=== PATIENT | male | born 1980 | race African-American/Black ===

== ENCOUNTER → 2022-11-21 14:32 | Outpatient (BNVA) | payer BC, SELFPAY | PROVIDERS: PCP Registered Nurse; Visit Provider Registered Nurse | DX: G47.33 Obstructive sleep apnea (adult) (pediatric) (principal); I10 Essential (primary) hypertension | CPT/HCPCS: 80053; 80061; 83036; 84443; 85025 ==

== ENCOUNTER 2022-12-09 20:35 | Emergency (ER) | payer BC, MEDICAID, SELFPAY ==
--- NOTE | 2022-12-09 20:41 | XRR_ITS ---
PROCEDURE INFORMATION: Exam: XR Chest Exam date and time: 12/09/2022 8:50 PM Age: 42 years old Clinical indication: Shortness of breath and other: High blood pressure; Additional info: Cp TECHNIQUE: Imaging protocol: Radiologic exam of the chest. Views: 1 view. COMPARISON: No relevant prior studies available. FINDINGS: Lungs: Unremarkable. No consolidation. Pleural spaces: Unremarkable. No pleural effusion. No pneumothorax. Heart/Mediastinum: Unremarkable. No cardiomegaly. Bones/joints: Unremarkable. XR/XR chest 1V portable [id number] IMPRESSION: No acute findings.
[2022-12-09 20:43] VITALS: BP 181/121; PULSE 81; RESP 16; TEMP 36.6; O2SAT 96; BMI 44.4
--- NOTE | 2022-12-09 20:49 | ECG_ITS ---
[facility] Test Date: 2022-12-09 Pat Name: James Gavin Jr Department: Room: Gender: Male Driver'S Education Instructor: : 1980 Requested By: Dago Bowling Order Number: [id number] Cortez MD: Con Monaco M.D. Measurements Intervals [place] Rate: 79 P: 10 WI: 171 QRS: 10 QRSD: 97 T: -26 QT: 343 QTc: 395 Interpretive Statements SINUS RHYTHM POSSIBLE LEFT ATRIAL ENLARGEMENT [-0.1mV P-WAVE IN V1/V2] No previous ECG available for comparison Electronically Signed On 12-10-2022 10:29:24 CDT by Con Monaco M.D. [email or web address] memorial hospitalAsian Food Centerselect [facility] - [id number] f
--- NOTE | 2022-12-09 20:58 | W.ED.CHESTPA ---
Documented by User: Simon Arnett DO 12/09/22 22:48 HPI - Chest Pain General: Chief Complaint: Chest Pain Stated Complaint: high bp, chest pain Time Seen by Provider: 12/09/22 20:56 History of Present Illness: Patient presents to the ER with complaints of blood pressure. When his blood pressure gets high he also has intermittent chest pain shortness of breath. Patient is currently on lisinopril and metoprolol. Patient's dose just recently increased 3 days ago. MD complaint: chest pain (Remittent and high blood pressure with intermittent shortness of breath) Pertinent past history: coronary artery disease and prior NV Onset (ago): day(s) Timing of current episode: episodic Prior episodes: Yes Onset: during rest Pain location: left chest Pain radiation: none Severity: mild Quality: tightness and aching Relieving factors: nothing Exacerbating factors: nothing Context: new medications Associated symptoms: Reports dyspnea; Deny abdominal pain, fever(s), nausea, palpitations or vomiting Treatment prior to arrival: none Review of Systems General: Reports: 10 or more systems reviewed and unremarkable except in HPI and below Const: Denies: fever(s) or chills Eyes: Denies: change in vision ENMT: Denies: throat pain or odynophagia Card: Reports: chest pain; Denies: palpitations or irregular heart rhythm Resp: Reports: dyspnea; Denies: productive cough or non-productive cough GI: Denies: abdominal pain, nausea, vomiting or diarrhea : Denies: flank pain Musc: Denies: neck pain or back pain Neuro: Denies: headache(s), numbness in extremities or weakness in extremities Psych: Denies: anxiety or depression PFSH ED PFSH: Family History Father Diabetes CAD (coronary artery disease) Hypertension Denies family history of Chronic kidney disease (CKD) Lung disease Cancer Stroke Social History Smoking and tobacco status: never smoked Alcohol intake: never Adopted: No Caregiver/support person: No Lives independently: Yes Household members: significant other service: No Current occupational status: unemployed Sexually active: Yes Current gender identity: Male Physical Exam Const: COMMON NORMALS: no acute distress, average body habitus, patient oriented x3, no limitations, healthy appearing, alert and well nourished HENMT: COMMON NORMALS: normocephalic, atraumatic, hearing grossly normal bilaterally, external ears normal, Normal external nose present and moist oral mucous membranes HEAD & SCALP: normocephalic and atraumatic NOSE: Normal external nose present EXTERNAL EAR: Yes external ears normal Eye: COMMON NORMALS: Equal, round and reactive pupils present, EOMs intact bilaterally, conjunctivae normal and no scleral icterus CONJUNCTIVA: Yes conjunctivae normal PUPIL: Yes Equal, round and reactive pupils present Neck/C-Spine: COMMON NORMALS: full ROM, no lymphadenopathy, supple, no meningeal signs, no JVD and Thyroid normal THYROID: Thyroid normal Chest: OTHER: Tenderness to palpation over left chest that which reproduces the pain. Resp: COMMON NORMALS: normal respiratory effort, No retractions, No use of accessory muscles and clear to auscultation bilaterally AUSCULTATION: clear to auscultation bilaterally Cardio: COMMON NORMALS: no JVD, regular rate, regular rhythm, S1 normal heart sound present and S2 normal heart sound present RATE: regular rate RHYTHM: regular rhythm HEART SOUNDS: S1 normal heart sound present and S2 normal heart sound present GI: COMMON NORMALS: Normal to inspection, nondistended, normoactive bowel sounds present, Soft to palpation, non-tender, No hepatosplenomegaly present and no masses PALPATION: Yes Soft to palpation and Yes No hepatosplenomegaly present Neuro: COMMON NORMALS: patient oriented x3 SENSORIUM/ORIENTATION: Yes alert MENINGEAL SIGNS: Yes no meningeal signs Psych: COMMON NORMALS: mental status grossly normal, cooperative, normal affect and speech normal SPEECH: Yes normal speech Course Vital Signs: Vital signs: Vital Signs Temperature 97.9 F 12/09/22 20:43 Pulse Rate 78 12/10/22 00:04 Respiratory Rate 23 H 12/10/22 00:04 Blood Pressure 140/93 12/10/22 00:04 Pulse Oximetry 98 12/10/22 00:04 Oxygen Delivery Me thod Room Air 12/10/22 00:04 MDM - Chest Pain Differential Diagnosis Unlikely acute massive pulmonary embolism, acute respiratory failure, acute myocardial infarction, cardiac arrest or sudden cardiac Lab Data 12/09/22 21:19 12/09/22 21:19 Radiology Impressions Chest X-Ray 12/09/22 20:41 IMPRESSION: No acute findings. Laboratory Results WBC 14.0 10^3/uL (4.0-10.0) H 12/09/22 21:19 RBC 5.23 10^6/uL (4.1-5.3) 12/09/22 21:19 Hgb 16.2 g/dL (11.7-16.6) 12/09/22 21:19 Hct 48.2 % (42.0-52.0) 12/09/22 21: MCV 92.2 fl (80-94) 12/09/22 21:19 MCH 31.0 pg (28.0-34.0) 12/09/22 21: MCHC 33.6 g/dL (30.0-36.0) 12/09/22 21: RDW 12.9 % (12.1-15.1) 12/09/22 21:19 Plt Count 238 10^3/cmm (130-400) 12/09/22 21:19 MPV 10.4 fL (7.4-10.4) 12/09/22 21:19 Neut % (Auto) 52.3 % 12/09/22 21:19 Lymph % (Auto) 36.3 % 12/09/22 21:19 [place] % (Auto) 7.2 % 12/09/22 21:19 Eos % (Auto) 3.0 % 12/09/22 21:19 Baso % (Auto) 0.8 % 12/09/22 21:19 Neut # (Auto) 7.33 10^3/uL (1.8-7.7) 12/09/22 21:19 Lymph # (Auto) 5.1 10^3/uL (0.8-4.8) H 12/09/22 21:19 [place] # (Auto) 1.0 10^3/uL (0.2-0.9) H 12/09/22 21:19 Eos # (Auto) 0.4 10^3/uL (0.0-0.8) 12/09/22 21:19 Baso # (Auto) 0.1 10^3/uL (0.0-0.1) 12/09/22 21:19 Nucleated RBC % (auto) 0 % 12/09/22 21:19 Nucleated RBCs # 0.0 /100WBC 12/09/22 21:19 Sodium 137 mmol/L (136-145) 12/09/22 21:19 Potassium 3.9 mmol/L (3.5-5.1) 12/09/22 21:19 Chloride 103 mmol/L (98-107) 12/09/22 21:19 Carbon Dioxide 23 mmol/L (22-29) 12/09/22 21:19 Anion Gap 14.9 (5-19) 12/09/22 21:19 BUN 15 mg/dL (6-20) 12/09/22 21:19 Creatinine 1.1 mg/dL (0.7-1.2) 12/09/22 21:19 GFR Calculation 89.7 mL/min (90-130) L 12/09/22 21:19 Glucose 136 mg/dL (65-115) H 12/09/22 21:19 Calculated Osmolality 287 mOsm/kg (285-295) 12/09/22 21:19 Calcium 8.8 mg/dL (8.5-10.5) 12/09/22 21:19 Total Bilirubin 0.2 mg/dL (0.15-1.2) 12/09/22 21:19 AST 23 U/L (0-40) 12/09/22 21:19 ALT 23 U/L (0-41) 12/09/22 21:19 Alkaline Phosphatase 86 U/L (40-130) 12/09/22 21:19 Troponin T Baseline 9 ng/L (0-15) 12/09/22 21:19 Troponin T 120 Minute 9.82 ng/L (0-15) 12/09/22 23:04 Delta Troponin T 0.82 ABS# (0-10) 12/09/22 23:04 Troponin T Hi Sens 6Hr 10.35 ng/L (0-15) 12/10/22 00:04 Troponin T Hi Sens 6Hr Delta 1.35 ng/L (0-12) 12/10/22 00:04 Total Protein 7.0 g/dL (6.6-8.7) 12/09/22 21:19 Albumin 4.3 g/dL (3.5-5.2) 12/09/22 21:19 Globulin 2.7 g/dL (1.3-4.6) 12/09/22 21:19 EKG Data EKG 1: I personally reviewed and interpreted this EKG as follows: EKG interpretation date: 12/09/22 EKG interpretation time: 20:49 Prior EKG tracings: not available for review Interpretation: EKG showed normal sinus rhythm at 79 bpm. #171, QRS duration 97, QTc 378, no ST-T wave changes EKG 2: I personally reviewed and interpreted this EKG as follows: EKG interpretation date: 12/09/22 EKG interpretation time: 22:46 Prior EKG tracings: available for review Interpretation: EKG showed normal sinus rhythm at 77 bpm, MO interval 203, QRS duration 94, QTc 384, Discharge Plan Discharge Patient Disposition: Home Clinical Impression: Chest pain, Hypertension Condition: Stable Prescriptions: No Action pantoprazole 20 mg tablet,delayed release (DR/EC) 20 mg PO DAILY 30 Days Qty: 30 0RF Rx Instructions: take on empty stomach lisinopril 30 mg tablet 30 mg PO DAILY 90 Days Qty: 90 0RF metoprolol succinate 50 mg tablet extended release 24 hr 50 mg PO DAILY 90 Days Qty: 90 0RF Discharge Orders: Discharge ED (Routine); Ordered 12/09/22 Ordered By: Harrison Suárez Referrals: Marilia Gallagher FNP [Primary Care Provider] - 1-3 days Patient Instructions: Opioid Safety, Pain Management Activity Restrictions/Additional Instructions: Return for return of or worsening chest pain, shortness of breath, other concerning symptoms. Check your blood pressure twice daily. Report numbers to your doctor early next week. Medication changes may need to be made if your blood pressure is staying up. For now, if blood pressure is remaining greater than 150/90, you could begin to take lisinopril twice daily instead of once until you see your doctor. Coding Level of Care Code ED Elevator Constructor Hydraulic for Chg Fwd Documented by User: Harrison Suráez DO 12/10/22 03:44 HPI - Chest Pain General: Chief Complaint: Chest Pain Stated Complaint: high bp, chest pain Time Seen by Provider: 12/09/22 20:56 [facility] PFSH: Family History Father Diabetes CAD (coronary artery disease) Hypertension Denies family history of Chronic kidney disease (CKD) Lung disease Cancer Stroke Social History Smoking and tobacco status: never smoked Alcohol intake: never Adopted: No Caregiver/support person: No Lives independently: Yes Household members: significant other service: No Current occupational status: unemployed Sexually active: Yes Current gender identity: Male Course Vital Signs: Vital signs: Vital Signs Temperature 97.9 F 12/09/22 20:43 Pulse Rate 78 12/10/22 00:04 Respiratory Rate 23 H 12/10/22 00:04 Blood Pressure 140/93 12/10/22 00:04 Pulse Oximetry 98 12/10/22 00:04 Oxygen Delivery Me thod Room Air 12/10/22 00:04 MDM - Chest Pain Medical Decision Making Received in checkout from Dr. Arnett at shift change. This gentleman had chest discomfort. None currently. No history of coronary disease. Blood pressure was significantly elevated on arrival. Currently 140/93 after clonidine in the ER. His EKG is nonacute with no acute ST wave changes. White blood cell count is 14. Other laboratory is normal. Chest x-ray is negative. Troponin did not change at 2 hours. With improvement in his blood pressure, no pain currently, he will be allowed discharge. Outpatient follow-up. Lab Data 12/09/22 21:19 12/09/22 21:19 Radiology Impressions Chest X-Ray 12/09/22 20:41 IMPRESSION: No acute findings. Laboratory Results WBC 14.0 10^3/uL (4.0-10.0) H 12/09/22 21:19 RBC 5.23 10^6/uL (4.1-5.3) 12/09/22 21:19 Hgb 16.2 g/dL (11.7-16.6) 12/09/22 21:19 Hct 48.2 % (42.0-52.0) 12/09/22 21:19 MCV 92.2 fl (80-94) 12/09/22 21:19 MCH 31.0 pg (28.0-34.0) 12/09/22 21: MCHC 33.6 g/dL (30.0-36.0) 12/09/22 21:19 RDW 12.9 % (12.1-15.1) 12/09/22 21:19 Plt Count 238 10^3/cmm (130-400) 12/09/22 21:19 MPV 10.4 fL (7.4-10.4) 12/09/22 21:19 Neut % (Auto) 52.3 % 12/09/22 21: Lymph % (Auto) 36.3 % 12/09/22 21:19 [place] % (Auto) 7.2 % 12/09/22 21: Eos % (Auto) 3.0 % 12/09/22 21:19 Baso % (Auto) 0.8 % 12/09/22 21:19 Neut # (Auto) 7.33 10^3/uL (1.8-7.7) 12/09/22 21:19 Lymph # (Auto) 5.1 10^3/uL (0.8-4.8) H 12/09/22 21:19 [place] # (Auto) 1.0 10^3/uL (0.2-0.9) H 12/09/22 21:19 Eos # (Auto) 0.4 10^3/uL (0.0-0.8) 12/09/22 21:19 Baso # (Auto) 0.1 10^3/uL (0.0-0.1) 12/09/22 21:19 Nucleated RBC % (auto) 0 % 12/09/22 21: Nucleated RBCs # 0.0 /100WBC 12/09/22 21:19 Sodium 137 mmol/L (136-145) 12/09/22 21:19 Potassium 3.9 mmol/L (3.5-5.1) 12/09/22 21: Chloride 103 mmol/L (98-107) 12/09/22 21:19 Carbon Dioxide 23 mmol/L (22-29) 12/09/22 21:19 Anion Gap 14.9 (5-19) 12/09/22 21:19 BUN 15 mg/dL (6-20) 12/09/22 21:19 Creatinine 1.1 mg/dL (0.7-1.2) 12/09/22 21:19 GFR Calculation 89.7 mL/min (90-130) L 12/09/22 21:19 Glucose 136 mg/dL (65-115) H 12/09/22 21:19 Calculated Osmolality 287 mOsm/kg (285-295) 12/09/22 21:19 Calcium 8.8 mg/dL (8.5-10.5) 12/09/22 21:19 Total Bilirubin 0.2 mg/dL (0.15-1.2) 12/09/22 21:19 AST 23 U/L (0-40) 12/09/22 21:19 ALT 23 U/L (0-41) 12/09/22 21:19 Alkaline Phosphatase 86 U/L (40-130) 12/09/22 21:19 Troponin T Baseline 9 ng/L (0-15) 12/09/22 21:19 Troponin T 120 Minute 9.82 ng/L (0-15) 12/09/22 23:04 Delta Troponin T 0.82 ABS# (0-10) 12/09/22 23:04 Troponin T Hi Sens 6Hr 10.35 ng/L (0-15) 12/10/22 00:04 Troponin T Hi Sens 6Hr Delta 1.35 ng/L (0-12) 12/10/22 00:04 Total Protein 7.0 g/dL (6.6-8.7) 12/09/22 21:19 Albumin 4.3 g/dL (3.5-5.2) 12/09/22 21:19 Globulin 2.7 g/dL (1.3-4.6) 12/09/22 21:19 Discharge Plan Discharge Patient Disposition: Home Clinical Impression: Chest pain, Hypertension Condition: Stable Prescriptions: No Action pantoprazole 20 mg tablet,delayed release (DR/EC) 20 mg PO DAILY 30 Days Qty: 30 0RF Rx Instructions: take on empty stomach lisinopril 30 mg tablet 30 mg PO DAILY 90 Days Qty: 90 0RF metoprolol succinate 50 mg tablet extended release 24 hr 50 mg PO DAILY 90 Days Qty: 90 0RF Discharge Orders: Discharge ED (Routine); Ordered 12/09/22 Ordered By: Harrison Suárez Referrals: Marilia Gallagher FNP [Primary Care Provider] - 1-3 days Patient Instructions: Opioid Safety, Pain Management Activity Restrictions/Additional Instructions: Return for return of or worsening chest pain, shortness of breath, other concerning symptoms. Check your blood pressure twice daily. Report numbers to your doctor early next week. Medication changes may need to be made if your blood pressure is staying up. For now, if blood pressure is remaining greater than 150/90, you could begin to take lisinopril twice daily instead of once until you see your doctor. Coding Level of Care Code ED Elevator Constructor Hydraulic for Jorge Garcia
[2022-12-09 21:25] LABS: Basophils # 0.1 10^3/uL (0.0-0.1); Basophils % 0.8 %; Eosinophils # 0.4 10^3/uL (0.0-0.8); Hematocrit 48.2 % (42.0-52.0); Hemoglobin 16.2 g/dL (11.7-16.6); Lymphocytes # 5.1 10^3/uL (0.8-4.8); Lymphocytes % 36.3 %; Mean Corpuscular HGB Conc 33.6 g/dL (30.0-36.0); Mean Corpuscular Volume 92.2 fl (80-94); Mean Platelet Volume 10.4 fL (7.4-10.4); Monocytes % 7.2 %; Neutrophils # 7.33 10^3/uL (1.8-7.7); Neutrophils % 52.3 %; Nucleated Red Blood Cells % 0 %; Platelet Count 238 10^3/cmm (130-400); Red Blood Count 5.23 10^6/uL (4.1-5.3); Red Cell Distribution Width 12.9 % (12.1-15.1)
[2022-12-09 21:42] LABS: Alanine Aminotransferase 23 U/L (0-41); Albumin Level 4.3 g/dL (3.5-5.2); Alkaline Phosphatase 86 U/L (40-130); Anion Gap 14.9 (5-19); Aspartate Amino Transferase 23 U/L (0-40); Blood Urea Nitrogen 15 mg/dL (6-20); Calcium 8.8 mg/dL (8.5-10.5); Carbon Dioxide 23 mmol/L (22-29); Chloride 103 mmol/L (98-107); Globulin 2.7 g/dL (1.3-4.6); Glomerular Filtration Rate 89.7 mL/min (90-130); Glucose 136 mg/dL (65-115); Osmolality Calculated 287 mOsm/kg (285-295); Potassium 3.9 mmol/L (3.5-5.1); Sodium 137 mmol/L (136-145); Total Bilirubin 0.2 mg/dL (0.15-1.2); Troponin(5th) Baseline 9 ng/L (0-15)
--- NOTE | 2022-12-09 22:44 | ECG_ITS ---
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 Measurements Intervals [place] Rate: 77 P: 35 NV: 203 QRS: 37 QRSD: 94 T: -31 QT: 353 QTc: 400 Interpretive Statements SINUS RHYTHM NONSPECIFIC T-WAVE ABNORMALITY Compared to ECG 12/09/2022 20:49:31 T-wave abnormality now present Electronically Signed On 12-10-2022 10:32:28 CDT by Con Monaco M.D. [id number]
[2022-12-09 23:24] VITALS: BP 170/99
[2022-12-09] MEDS: cloNIDine 0.1 mg Tablet PO (23:24)
[2022-12-09 23:44] LABS: Troponin 5 2HR 9.82 ng/L (0-15)
[2022-12-09 23:51] LABS: Troponin 5 2HR Delta 0.82 ABS# (0-10)
[2022-12-10 00:04] VITALS: BP 140/93; PULSE 78; RESP 23; O2SAT 98
[2022-12-10 00:33] LABS: Troponin 5 6HR 10.35 ng/L (0-15)
[2022-12-10 00:42] LABS: Troponin 5 6HR Delta 1.35 ng/L (0-12)
== END 2022-12-10 00:05 | disposition home or self-care (01) ==
PROVIDERS: Physician Assistant; Emergency Provider Emergency Medicine; PCP Registered Nurse
DX: R07.9 Chest pain, unspecified (principal); I10 Essential (primary) hypertension
CPT/HCPCS: 36415; 71045; 80053; 84484; 85025; 93005; 99285

== ENCOUNTER 2022-12-15 11:57 | Outpatient (CLI) | payer BC, MEDICAID, SELFPAY ==
--- NOTE | 2022-12-15 | ECG_ITS ---
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 Interpretive Statements NAME OF STUDY: TREADMILL STRESS TEST INDICATION: [Uncontrolled HTN, Chest Pain] EXERCISE DATA: The patient was exercised by José Manuel protocol. Baseline heart rate was 78 beats per minute. Baseline blood pressure was 164/103 millimeters of mercury. Target heart rate was 153 beats per minute. Maximum heart rate achieved was 139 which was 90% of the target heart rate and was suboptimal. Maximum blood pressure was 201/115 millimeters of mercury. Total exercise time was 9 minutes. Maximum METs achieved was 10.2. The reason for ending the test was maximal effort achieved along with shortness of breath. The patient complained of shortness of breath and leg pain during the stress test, which then resolved at the end of the test. ELECTROCARDIOGRAM: BASELINE: Showed sinus rhythm, normal axis, no significant ST-T changes at the baseline noted. [] EXERCISE: At the peak exercise level, significant artifact was noted. ST-T wave changes cannot be assessed because of underlying artifact. RECOVERY: During the recovery period, heart rate dropped appropriately. No significant ST-T changes in the recovery suggestive of ischemia noted. [] CONCLUSION: 1. Exercise capacity fair 2. Heart rate response was suboptimal 3. Blood pressure response was appropriate. 4. Stress test is suboptimal as patient could not reach target heart rate secondary to shortness of breath and leg pain. Also had significant artifact EKG and exercise. Cannot assess ischemia based on inadequate heart rate, EKG artifact. Consider alternate study to rule out ischemia Electronically Signed On 12-25-2022 15:14:18 CDT by Con Monaco M.D. [id number]
[2022-12-15 12:12] VITALS: BMI 45.3
[2022-12-15 12:59] VITALS: BP 136/89; PULSE 89
== END 2022-12-15 11:58 | disposition home or self-care (01) ==
PROVIDERS: PCP Registered Nurse; Visit Provider Registered Nurse
DX: R06.02 Shortness of breath (principal); I10 Essential (primary) hypertension; Z82.49 Family history of ischemic heart disease and other diseases of the circulatory system
CPT/HCPCS: 93017

== ENCOUNTER 2023-01-13 12:26 | Outpatient (CLI) | payer MEDICAID, SELFPAY ==
--- NOTE | 2023-01-13 12:45 | USCV_ITS ---
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 Technologist: Layla Moeller [place] [facility] [place]: HTN BP: 136 / 93 HR: 71 Rhythm: Sinus Technical Quality: Adequate MEASUREMENTS (Male / Female) Normal Values 2D ECHO LV Diastolic Diameter PLAX 3.1 cm 4.2 - 5.9 / 3.9 - 5.3 cm LV Systolic Diameter PLAX 2.2 cm LV Chamber Size 3.1 cm IVS Diastolic Thickness 1.0 cm 0.6 - 1.0 / 0.6 - 0.9 cm IVS Systolic Thickness 2.0 cm LVPW Diastolic Thickness 1.5 cm 0.6 - 1.0 / 0.6 - 0.9 cm LVPW Systolic Thickness 2.2 cm RV Chamber Size 2.6 cm LVOT Diameter 2.0 cm LV Ejection Fraction 2D Teich 55.1 % LV Ejection Fraction MOD 2C 60.0 % LV Ejection Fraction 2C AL 63.1 % LA Diameter 3.3 cm LA Width 3.4 cm LA Height 3.6 cm RA Width 3.8 cm RA Height 4.0 cm Aorta at Sinotubular Diameter 3.5 cm IVC Diameter 1.2 cm M-MODE Aortic Annulus Diameter 4.0 cm LA Ao Ratio MM 0.9 MV E Point Septal Separation 0.7 cm DOPPLER AV Peak Velocity 131.0 cm/s LVOT Peak Velocity 105.0 cm/s AV Area Cont Eq vti 2.2 cm squared AV Area Cont Eq pk 2.6 cm squared MV Peak Velocity 96.0 cm/s MV Area PHT 3.0 cm squared Mitral E to A Ratio 1.2 MV E' Velocity 42.0 cm/s Mitral E to MV E' Ratio 6.3 Mitral E to LV E' Lateral Ratio 5.9 Mitral E to LV E' Septal Ratio 6.8 TR Peak Velocity 202.5 cm/s TR Peak Gradient 16.4 mmHg TR Mean Velocity 141.1 cm/s TR Mean Gradient 9.4 mmHg TR Velocity Time Integral 51.2 cm TV Peak E Velocity 70.0 cm/s Right Atrial Pressure 3.0 mmHg Pulmonary Artery Systolic Pressu 19.4 mmHg RV Acceleration Time 0.1 s RV Ejection Time 0.3 s RV AcT/ET 0.5 FINDINGS Left Ventricle Left ventricle is normal in size. LV systolic function is normal with EF of 60 to 65%. No regional wall motion abnormalities are seen. Diastolic function is normal. Right Ventricle Normal in size and function Right Atrium Normal in size Left Atrium Normal in size Mitral Valve Structurally normal mitral valve. Trace mitral regurgitation. Aortic Valve Structurally normal aortic valve. No significant stenosis or regurgitation. Tricuspid Valve Mild tricuspid regurgitation. RVSP is normal. Pulmonic Valve Not well-visualized. Pericardium Normal Aorta Normal in size IVC Appears to be normal CONCLUSIONS LV systolic function is normal with EF 60-65% Diastolic function is normal Trace mitral regurgitation Mild tricuspid regurgitation No comparison studies are available. Con Monaco MD (Electronically Signed) Final Date: 13 Jan 2023 17:16 S
== END 2023-01-13 12:27 | disposition home or self-care (01) ==
LOC: RAD 12:31
PROVIDERS: PCP Registered Nurse; Visit Provider Registered Nurse
DX: I10 Essential (primary) hypertension (principal); R06.02 Shortness of breath; I07.1 Rheumatic tricuspid insufficiency
CPT/HCPCS: 93306

== ENCOUNTER → 2023-01-27 09:55 | Outpatient (BNVA) | payer MEDICAID, SELFPAY | PROVIDERS: PCP Registered Nurse; Visit Provider Registered Nurse | DX: N28.9 Disorder of kidney and ureter, unspecified (principal) | CPT/HCPCS: 81000 ==

== ENCOUNTER 2023-03-23 20:00 | Outpatient (CLI) | payer MEDICAID, SELFPAY | END 2023-03-23 20:01 | disposition home or self-care (01) | LOC: SLEEP 03-24 05:17 | PROVIDERS: PCP Registered Nurse; Visit Provider Registered Nurse | DX: G47.33 Obstructive sleep apnea (adult) (pediatric) (principal); E66.01 Morbid (severe) obesity due to excess calories; Z68.42 Body mass index [BMI] 45.0-49.9, adult; I10 Essential (primary) hypertension | CPT/HCPCS: 95810 ==

== ENCOUNTER → 2023-04-24 14:58 | Outpatient (BNVA) | payer MEDICAID, SELFPAY | PROVIDERS: PCP Registered Nurse; Visit Provider Registered Nurse | DX: R35.0 Frequency of micturition (principal) | CPT/HCPCS: 81000 ==

== ENCOUNTER → 2023-05-11 09:54 | Outpatient (BNVA) | payer MEDICAID, SELFPAY | PROVIDERS: PCP Registered Nurse; Visit Provider Registered Nurse | DX: Z20.822 Contact with and (suspected) exposure to COVID-19 (principal) | CPT/HCPCS: 87426 ==

== ENCOUNTER 2023-06-28 20:00 | Outpatient (CLI) | payer MEDICAID, SELFPAY | END 2023-06-28 20:01 | disposition home or self-care (01) | LOC: SLEEP 06-29 06:22 | PROVIDERS: PCP Registered Nurse; Visit Provider Registered Nurse | DX: G47.33 Obstructive sleep apnea (adult) (pediatric) (principal) | CPT/HCPCS: 95811 ==

== ENCOUNTER 2023-09-29 08:21 | Outpatient (CLI) | payer MEDICAID, SELFPAY ==
--- NOTE | 2023-09-29 08:45 | MR_ITS ---
WS: [id number] MRI RIGHT KNEE NONCONTRAST TECHNIQUE: Axial PD, coronal PD fat sat, coronal PD, sagittal PD, and sagittal PD fat-sat images obta ined. CLINICAL INFORMATION: M25.561 - Pain in right knee COMPARISON: None. FINDINGS: Distal quadriceps and patella tendons are intact. Hypertrophic patella. Distal quadriceps insertion e nthesophyte. Patella tendon origin enthesophyte. ACL and PCL appear intact. Thinning of the ACL with a small amount of fluid and edema in the mid and distal aspect suspicious for recent injury. No evide nce of bone marrow contusion. Chronic thinning of the medial lateral meniscus somewhat advanced for a patient this age in the medial joint compartment. No acute appearing meniscal tears. Moderate chondromalacia patella. Medial and lateral collateral ligaments appear intact. Tiny amount o f fluid and edema along the MCL. Recommend correlation for MCL sprain. Tiny suprapatellar effusion. S mall amount of fluid and edema involving the medial patellar retinaculum suspicious for partial tear. Normal popliteus. Normal popliteal fossa. IMPRESSION: 1. ACL and PCL appear intact. Thinning of the distal ACL with a small amount of edema. Recommend cor relation for partial ACL tear or ACL injury. 2. 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 3. Chronic thinning of the medial and lateral meniscus. No acute appearing meniscal tears. 4. Suspected partial tear involving the medial patellar retinaculum. Recommend correlation for peter lar instability. 5. Suspected grade 1 MCL injury. 6. Moderate chondromalacia patella. Small suprapatellar effusion. 7. Distal quadriceps and proximal patella tendon enthesophytes. 8. Small amount of prepatellar and infrapatellar soft tissue edema about the knee. Outbridge grading: grade III: partial-thickness cartilage loss with focal ulceration
== END 2023-09-29 08:22 | disposition home or self-care (01) ==
LOC: RAD 08:21
PROVIDERS: PCP Registered Nurse; Visit Provider Registered Nurse
DX: M23.8X1 Other internal derangements of right knee (principal); M22.41 Chondromalacia patellae, right knee; M76.51 Patellar tendinitis, right knee; M25.461 Effusion, right knee
CPT/HCPCS: 73721

== ENCOUNTER → 2024-09-09 10:51 | Outpatient (BNVA) | payer MEDICAID, SELFPAY | PROVIDERS: PCP Registered Nurse; Visit Provider Registered Nurse | DX: I10 Essential (primary) hypertension (principal) | CPT/HCPCS: 80053; 80061; 83036; 85025 ==

== ENCOUNTER → 2024-09-12 08:53 | Outpatient (BNVA) | payer MEDICAID, SELFPAY | PROVIDERS: PCP Registered Nurse; Visit Provider Registered Nurse | DX: L98.9 Disorder of the skin and subcutaneous tissue, unspecified (principal) | CPT/HCPCS: 88305 ==

== ENCOUNTER → 2024-12-16 11:13 | Outpatient (BNVA) | payer BC, SELFPAY | PROVIDERS: PCP Registered Nurse; Visit Provider Registered Nurse | DX: E11.9 Type 2 diabetes mellitus without complications (principal); I10 Essential (primary) hypertension | CPT/HCPCS: 80048; 83036 ==

== ENCOUNTER → 2024-12-23 13:31 | Outpatient (BNVA) | payer OTHER, SELFPAY | PROVIDERS: PCP Registered Nurse; Visit Provider Student in an Organized Health Care Education/Training Program | DX: S82.831A Other fracture of upper and lower end of right fibula, initial encounter for closed fracture (principal); W19.XXXA Unspecified fall, initial encounter | CPT/HCPCS: 73610 ==

== ENCOUNTER 2024-12-26 10:13 | Day surgery (SDC) | payer OTHER, SELFPAY ==
[2024-12-26] VITALS (8 sets, daily range): BP systolic 115–141; BP diastolic 55–99; PULSE 65–78; RESP 16–18; TEMP 36.1–36.3; O2SAT 94–97; BMI 42.7
--- NOTE | 2024-12-26 10:49 | SUR.PREOP ---
Patient has never had surgery before and became very anxious upon setting up for IV. Cool cloth was placed on back of neck and fan brought to room to blow cool air on him. Patient is teary eyed and family is at bedside.
[2024-12-26] MEDS: MIDAZOLAM HCL 10 MG/5 ML UDC 20 MG PO (11:03)
[2024-12-26] MEDS: acetaminophen 1,000 MG/100 ML PIGGYBACK 400 MG IV (11:11)
[2024-12-26] MEDS: sodium chloride 0.9% 1,000 ML 30 ML (11:11)
[2024-12-26] MEDS: ketorolac 30 mg/mL INJ IVP (11:13)
--- NOTE | 2024-12-26 11:36 | W.PM.OPSUD ---
Surgery/Procedure H&P Update DATE OF PROCEDURE: December 26, 2024 DATE H&P PERFORMED: 12/23/24 H&P UPDATE INFORMATION: I have reviewed H&P completed within last 30 days, I have examined patient prior to procedure and No changes to prior documentation CHANGES TO PREVIOUS DOCUMENTATION: Patient splint was taken down soft tissue inspected patient had a positive wrinkle sign with amendable soft tissue envelope to proceed with surgical intervention. Patient had significant anxiety and did receive some premedication of Versed prior to his full consent signing as a result consent was obtained with his life partner with witness as well. Once again she understands for him which we talked about in the office about the ins and outs procedure risk benefits complication alternatives of surgery and through shared decision making like to proceed with surgical intervention all questions answered at this time. PREOP DIAGNOSIS: Displaced right distal fibula fracture PRIMARY INDICATION FOR PROCEDURE: Displaced right distal fibula fracture with medial clear space widening with stress test PLANNED PROCEDURE: Operation Date: 12/26/24 12:25 Proposed Procedures p distal fibula open reduction internal fixation(Right) - Michael Bowling DO
[2024-12-26] MEDS: ceFAZolin 2,000 MG in sodium chloride 0.9% (plus) 50 ML 100 MG IV (11:44)
[2024-12-26] MEDS: ceFAZolin 1,000 mg SDV 1000 MG IVP (12:12)
[2024-12-26] MEDS: ROPivacaine 0.5% SDV 30 mL 50 MG INJECTION (12:31)
[2024-12-26] MEDS: lidocaine 1% 10 ML INJ INJECTION (12:31)
--- NOTE | 2024-12-26 13:33 | P.OP_ITS ---
Operative Report Date of procedure: December 26, 2024 Surgeon: Michael Bowling DO
--- NOTE | 2024-12-26 13:33 | P.OP_ITS ---
Operative Report Date of procedure: December 26, 2024 Surgeon: Michael Bowling DO Stamping Die Maker Bench: Dago Bowling PA-C: PA was necessary for assistance in this case with leg positioning retraction and protection of neurovascular structures as well as assistance in implantation/fracture reduction and fixation, wound closure and dressing application and splint application. Procedure: Preoperative diagnosis: Right distal fibula fracture with medial clear space widening post-op diagnosis: Same, with stable syndesmosis after fracture fixation Procedure done: Right?distal fibula open reduction internal fixation Right?ankle?short leg standard AO splint application Implants: Arthrex anatomic distal fibula plate combination of locking and nonlocking screws and interfragmentary screws Surgeon: Michael Bowling DO Estimated blood loss: 10mL Tourniquet time 46 minutes IV fluids: 800mL Urine output: See anesthesia record Complications: None Findings: See operative report narrative Condition: stable Disposition: same day Brief History: Patient is a 44-year-old male who sustained a right distal fibula fracture?ankle?fracture.? This was seen in the emergency department and referred to myself for an orthopedic in outpt setting. On my evaluation patient has inherently unstable right distal fibula?ankle?fracture with medial clear space widening with external stress test under fluoroscopy imaging. We talked about treatment options far as nonoperative and operative intervention.? At this point time given the inherent instability would recommend surgical intervention of?ORIF?right distal fibula fracture with possible syndesmotic fixation.? Understanding risk for surgery as far as risk benefits complications with surgical nonsurgical treatment options patient agrees to proceed with surgical intervention.? All questions been answered at this time.? Soft tissue check prior to surgery demonstrates positive wrinkle sign amenable for surgical intervention.? Consent was obtained patient agrees to proceed with surgery. Procedure: Patient seen evaluated in the preoperative holding area.? Consent was reviewed and signed with patient's as patient was premedicated secondary to his anxiety preoperatively.? Correct extremity was marked.? Splint was taken down soft tissue inspected and positive wrinkle sign demonstrating amendable for proceeding with surgical intervention.? Patient underwent regional anesthesia per the anesthesia department.? Patient was brought back to the operative suite.? Patient was transported on the OR table placed in supine position all bony prominences well-padded patient appropriate secured to the bed.? Patient then underwent anesthesia per the anesthesia department.? Once appropriately anesthetized the right lower extremity was then nonsterile tourniquet applied to the right thigh.? Patient was placed in ipsilateral hip bump was placed for appropriate foot positioning and was placed on bone foam large C arm was used for this procedure.? Patient was then prepped and draped in standard orthopedic fashion.? Final timeout performed.? Patient received appropriate preoperative antibiotics. Large fluoroscopic C-arm was then brought into identify fracture fragments.? At this point in time I then planned for a direct lateral approach to the distal fibula. Started with my lateral incision.? A standard direct lateral approach to the distal fibula was performed with care to protect the SPN nerve I utilized sharp scalpel incision dissection scissors and then elevated with a periosteal elevator on bone to the fracture site and proximal to accommodate for plate fixation.? I then identified the fracture site.? This was found to have fracture pattern amenable to lag screw interfragmentary fixation.? As result I utilized a reduction clamp to maintain my reduction and this was confirmed on fluoroscopic imaging to be in appropriate position as well as appropriate length of the fibula.? While maintaining this reduction I subsequently drilled and placed an interfragmentary lag screw under standard technique which was subsequently drilled measured and placed appropriate length screw which had appropriate fixation.? I then selected a Arthrex anatomic distal fibula plate to the appropriate length this was then held up to the bone and once confirmed to be in appropriate position I then subsequently drilled a 3.5 cortical screw proximally to secure the plate to bone as well as did this distally to secure the plate to bone once I was confirmed that there was good bone to plate interface and the fracture was well maintained I then subsequently locked the plate distally was subsequently drilled measured and placed appropriate length multiple locking screws around my cortical screw once this was completed I remove my distal cortical screw and placed a shorter locking screw all the screws were in appropriate position and did not violate the lateral gutter.? Next I turned my fixation proximally and then subsequently drilled an additional locking screws in the plate to increase my construct rigidity.? Proximal guides were then used and subsequently drilled measured and placed additional locking screws proximally which were placed in standard fashion. I did place an additional cortical screw at my most proximal screw hole. This completed my lateral distal fibula?ORIF?and was satisfied with my reduction and fixation. I then at this point in time stress the syndesmosis with an external stress test as well as cotton test which were all negative and the ankle mortise joint was congruent throughout with no evidence of medial clear space widening as a result the syndesmosis was intact after the distal fibula fixation. No further syndesmotic fixation or surgical intervention required. this completed my fixation.? Final x-rays were taken of AP?ankle?mortise stress as well as lateral images which showed stable right distal fibula?ankle?ORIF. Tourniquet was deflated.? Hemostasis was satisfactory.? Wound beds were then thoroughly irrigated.? The lateral incision was closed with 2-0 Vicryl and chan.? Xeroform covered the incision sites.? 4 x 4's ABDs Curlex soft roll and a standard AO short leg splint was then applied with holding the foot in neutral position.? Patient was then awake from anesthesia and taken to PACU in stable condition. Disposition: Patient taken to PACU in stable condition recovering well.? Pain controlled.? Will receive appropriate discharge instructions as well as pain medication postoperatively.? Maintain splint until follow-up.? Follow-up in the orthopedic office in 2 weeks.? Patient to be nonweightbearing right lower extremity.? Patient understands and agrees with current plan.? All questions answered.? Elevation ice as needed.? Will receive DVT prophylaxis of aspirin.
--- NOTE | 2024-12-26 13:33 | W.PM.BPON ---
Date of Procedure:12/26/24 Surgeon: Michael Bowling DO Field Research Assistant(s): Dago Bowling PA-C Procedure(s) performed: Right distal fibula open reduction internal fixation Findings of the procedure(s): Patient found to have a right displaced distal fibula fracture underwent ORIF as planned without issues or complications. Patient then underwent external stress testing and cotton test and was negative for no medial clear space widening as a result no syndesmotic fixation was necessary. Patient was alert and closed up and placed into a standard AO splint. Taken to PACU stable condition Estimated blood loss: 10 mL Specimen(s) removed: None Post-operative diagnosis: Right ankle distal fibula fracture
--- NOTE | 2024-12-26 13:34 | PM.PACU ---
PACU note Narrative: Patient is a 44-year-old male that just underwent a right ankle fracture ORIF. Pt transferred to PACU in stable condition. Splint and dressing on right ankle is dry and in place. Patient is able to straight leg raise. Pt is awake and alert. pt can wiggle toes toes are warm and well-perfused. Cap refill is normal and under 2 seconds. Sensation to foot is intact. Pain is controlled. Exam: awake Disposition: discharged
--- NOTE | 2024-12-26 14:06 | XR_ITS ---
WS: [id number] Right ankle, C-arm fluoroscopy views, 12/26/2024 Clinical Data: or pic, orif Comparison: Right ankle, 12/23/2024 Findings: Dr. Bowling performed a plate and screw reduction of the distal right fibular fracture. XR/XR ankle RT min 3V* [id number] Impression: Internal fixation of distal right fibular fracture.
[2024-12-26] MEDS: HYDROcodone-acetaminophen 7.5-325 mg Tablet 1 TAB PO (14:20)
--- NOTE | 2024-12-26 14:50 | ANE.PACU2 ---
Inpatient post-anesthesia follow up: Airway intact: Yes Vital signs: Temperature 97.2 F Pulse Rate 70 Respiratory Rate 16 Blood Pressure 138/89 Pulse Oximetry 97 Oxygen Delivery Me thod Room Air Oxygen Flow Rate 10 Fraction of Inspir ed Oxygen Hydration adequate: Yes Nausea and vomiting: No Pain level: 1 Mental status: Baseline
== END 2024-12-26 14:49 | disposition home or self-care (01) ==
PROVIDERS: PCP Registered Nurse; Visit Provider Student in an Organized Health Care Education/Training Program
PROC: 0QSK04Z Reposition Left Fibula with Internal Fixation Device, Open Approach (ICD-10-PCS; CPT 27828; principal; 2024-12-26 12:15)
DX: S82.831A Other fracture of upper and lower end of right fibula, initial encounter for closed fracture (principal); W19.XXXA Unspecified fall, initial encounter
CPT/HCPCS: 27792; 73610; 76000; C1713; J0131; J0690; J1100; J1885; J2250; J2405; J2704; J2795; J3010; J3490; J7030; J9999

== ENCOUNTER → 2025-01-08 14:05 | Outpatient (BNVA) | payer OTHER, SELFPAY | PROVIDERS: PCP Registered Nurse; Visit Provider Student in an Organized Health Care Education/Training Program | DX: Z98.890 Other specified postprocedural states (principal); S82.831D Other fracture of upper and lower end of right fibula, subsequent encounter for closed fracture with routine healing; X58.XXXD Exposure to other specified factors, subsequent encounter | CPT/HCPCS: 73610 ==

== ENCOUNTER 2025-01-08 15:49 | Outpatient (CLI) | payer OTHER, SELFPAY | END 2025-01-08 15:50 | disposition home or self-care (01) | LOC: SPT 15:49 | PROVIDERS: PCP Registered Nurse; Visit Provider Student in an Organized Health Care Education/Training Program | DX: Z47.89 Encounter for other orthopedic aftercare (principal); S82.831D Other fracture of upper and lower end of right fibula, subsequent encounter for closed fracture with routine healing; X58.XXXD Exposure to other specified factors, subsequent encounter | CPT/HCPCS: 97760; L4361 ==

== ENCOUNTER → 2025-02-05 13:11 | Outpatient (BNVA) | payer OTHER, SELFPAY | PROVIDERS: PCP Registered Nurse; Visit Provider Physician Assistant | DX: Z98.890 Other specified postprocedural states (principal); Z87.81 Personal history of (healed) traumatic fracture | CPT/HCPCS: 73610 ==

== ENCOUNTER → 2025-02-19 13:25 | Outpatient (BNVA) | payer OTHER, SELFPAY | PROVIDERS: PCP Registered Nurse; Visit Provider Physician Assistant | DX: Z98.890 Other specified postprocedural states (principal); S82.301D Unspecified fracture of lower end of right tibia, subsequent encounter for closed fracture with routine healing; X58.XXXD Exposure to other specified factors, subsequent encounter | CPT/HCPCS: 73590 ==

== ENCOUNTER → 2025-03-10 11:48 | Outpatient (BNVA) | payer OTHER, SELFPAY | PROVIDERS: PCP Registered Nurse; Visit Provider Registered Nurse | DX: E11.9 Type 2 diabetes mellitus without complications (principal) | CPT/HCPCS: 80048; 82607; 83036; 85025 ==

== ENCOUNTER → 2025-03-19 13:37 | Outpatient (BNVA) | payer OTHER, SELFPAY | PROVIDERS: PCP Registered Nurse; Visit Provider Student in an Organized Health Care Education/Training Program | DX: Z98.890 Other specified postprocedural states (principal); S82.831D Other fracture of upper and lower end of right fibula, subsequent encounter for closed fracture with routine healing; X58.XXXD Exposure to other specified factors, subsequent encounter | CPT/HCPCS: 73610 ==

== ENCOUNTER → 2025-05-14 14:35 | Outpatient (BNVA) | payer OTHER, SELFPAY | PROVIDERS: PCP Registered Nurse; Visit Provider Student in an Organized Health Care Education/Training Program | DX: Z98.890 Other specified postprocedural states (principal); Z87.81 Personal history of (healed) traumatic fracture | CPT/HCPCS: 73590 ==

== ENCOUNTER → 2025-07-02 13:56 | Outpatient (BNVA) | payer OTHER, SELFPAY | PROVIDERS: PCP Registered Nurse; Visit Provider Student in an Organized Health Care Education/Training Program | DX: Z98.890 Other specified postprocedural states (principal); Z87.81 Personal history of (healed) traumatic fracture | CPT/HCPCS: 73610 ==